=== PATIENT | female | born 2000 | race Caucasian/White ===

== ENCOUNTER 2021-02-25 21:16 | Emergency (ER) | payer OTHER, SELFPAY ==
[2021-02-25 21:18] VITALS: BP 143/75; PULSE 94; RESP 16; TEMP 36.1; O2SAT 99; BMI 26.6
--- NOTE | 2021-02-25 21:48 | EKG12_ITS ---
Test Reason : DYSRYTHMIA Blood Pressure : / mmHG Vent. Rate : 070 BPM Atrial Rate : 070 BPM P-R Int : 150 ms QRS Dur : 092 ms QT Int : 400 ms P-R-T Axes : 065 064 025 degrees QTc Int : 432 ms Normal sinus rhythm Normal ECG Confirmed by TAM MAS, SELENA ([id number]), fashion editor ТАТЬЯНА DUQUE ([id number]) on 02/27/2021 12:27:10 PM Referred By: BETTY Confirmed By:SELENA TURCIOS MD
--- NOTE | 2021-02-25 21:56 | ED.RN ---
NO OLD EKGS IN MUSE
--- NOTE | 2021-02-25 22:00 | RAD_ITS ---
STUDY: X-RAY CHEST REASON FOR EXAM: Female, 20 years old. chest pain TECHNIQUE: Single AP portable view of the chest. COMPARISON: None. FINDINGS: The lungs are clear and expanded. There is no demonstrated pleural abnormality. Normal size heart. Normal mediastinum and pascual. Normal visualized pulmonary arteries. Normal visualized aortic arch and descending thoracic aorta. Normal visualized thoracic spine. Normal visualized ribs, clavicles, and shoulders. There is no demonstrated abnormality of the visualized soft tissue structures of the upper abdomen. RAD/Chest 1 View (Portable) IMPRESSION: Normal x-ray examination of the chest. Electronically Signed: Javed Lowe DO at 22:12 EDT Tel , Service support ,
--- NOTE | 2021-02-25 23:17 | EX.ED.GENINJ ---
HPI History of Present Illness Chief Complaint: Other, Pain/Inj Informant: patient Narrative Narrative: 20-year-old female presents for left arm pain. Patient had a Nexplanon placed approximately 1 week ago. States that she had increasing pain in her left arm. Worse with movement. Rated grades across her chest. Aching in nature. Denies any shortness of breath PFSH PFSH Home Medications naproxen 500 mg PO BID #10 tab 02/25/21 [Rx Last Taken Unknown] Allergy/AdvReac Type Severity Reaction Status Date / Time No Known Allergies Allergy Verified 02/25/21 21:20 Social History Smoking Status: Never smoker ROS ROS ED Constitutional Constitutional ED: Denies chills, fever(s) or sweats Eyes Eyes: Denies blurry vision, change in vision or diplopia ENT ENT ED: Denies rhinorrhea or sore throat Cardiovascular Cardiovascular: Reports chest pain; Denies orthopnea, palpitations or racing heartbeat Respiratory/Chest Respiratory/Chest: Denies cough, dyspnea, dyspnea on exertion, orthopnea or sputum Gastrointestinal Gastrointestinal: Denies abdominal pain, constipation, diarrhea, melena, nausea or vomiting Genitourinary Genitourinary ED: Denies dysuria, hematuria or urinary frequency Musculoskeletal Musculoskeletal: Reports myalgias; Denies arthralgias or neck pain Integumentary Denies rash Neurologic Neurologic: Denies headache(s), paresthesias or weakness Psychiatric Psychiatric: Denies anxiety or depression Hematologic/Lymphatic Hematologic/Lymphatic: Denies easy bleeding or easy bruising Allergic/Immunologic Allergic/Immunologic ED: Denies mouth swelling or tongue swelling EXAM Physical Exam Const Vital Signs: 02/25/21 21:18 02/25/21 21:58 Temperature 96.9 F L Temperature Source Temporal Pulse Rate 94 Respiratory Rate 16 Respiratory Effort Normal Non-Labored Blood Pressure 143/75 H Blood Pressure Mean 97 Pulse Ox 99 Oxygen Delivery Method Room Air Positive well nourished and well developed General Appearance ED: well developed HEENT Reports moist mucous membranes normocephalic and atraumatic Eyes PERRL and EOMs intact bilaterally Neck no lymphadenopathy, supple and no JVD Chest Wall inspection of chest normal Resp normal respiratory effort and clear to auscultation bilaterally Cardio regular rate, S1 normal heart sound, S2 normal heart sound and no murmurs Peripheral Pulses: pulses 2+ throughout GI soft to palpation, non-tender and non-distended Back/Spine no CVA tenderness and no thoracic nor lumbar tenderness Extremity normal to inspection Extremity Narrative: Bruising distal to the site of insertion of the Nexplanon. No overlying cellulitis or abscess. General Extremety ED: Negative for edema General Extremity: Negative for edema Neuro Sensorium / Orientation: alert Motor Exam: strength 5/5 throughout Psych mental status grossly normal Skin no rashes or lesions noted MDM MDM MDM Narrative Medical decision making narrative: Patient appears well nontoxic. Vital signs within normal limits. EKG nonischemic. Chest x-ray interpreted by myself is negative. Radiology concurs. Ultrasound was ordered but metallurgy laboratory technician cannot perform upper ultrasounds at night only lower ultrasounds. She will be set up to receive an ultrasound tomorrow. Patient will be given intramuscular Toradol in the emergency department and Naprosyn for home. Advised to follow-up with nurse practitioner the place the Nexplanon. Patient agreeable and discharged home in stable condition. Radiography Diagnostic Testing: Radiology Impression Chest X-Ray 02/25/21 22:00 IMPRESSION: Normal x-ray examination of the chest. Electronically Signed: Javed Lowe DO at 22:12 EDT Tel , Service support , Rhythm Strip Rhythm Strip: Sinus Rhythm Rate: 70 Ectopy: None EKG Initial EKG: Attestation: I personally reviewed and interpreted this EKG as follows: Interpretation: Sinus Rhythm and No Acute Injury Pattern Comments: Normal sinus rhythm at 70 bpm. AK interval 150 ms. QTC of 432 ms. No evidence of acute ischemia. Discharge Plan Triage Chief Complaint: Other, Pain/Inj ED Provider: Jerod Ramirez Dx/Rx/DC Orders Clinical Impression: Arm pain, left, Chest pain Instructions: ED Myalgias, ED Chest Pain [facility]O Prescriptions: New naproxen 500 mg tablet 500 mg PO BID Qty: 10 RF: 0 Primary Care Provider: Iftikhar Fitzgerald Referrals: Iftikhar Fitzgerald MD [Primary Care Provider] - 2 Days Disposition Disposition: Home, Self Care
[2021-02-25] MEDS: Ketorolac 15 MG/ML Vial IM (23:35)
== END 2021-02-25 23:39 | disposition home or self-care (01) ==
PROVIDERS: Emergency Provider Emergency Medicine; PCP Family Medicine
DX: M79.602 Pain in left arm (principal); R07.9 Chest pain, unspecified
CPT/HCPCS: 71045; 93005; 96372; 99282

== ENCOUNTER → 2021-02-26 10:55 | Outpatient (CLI) | payer OTHER, SELFPAY ==
[2021-02-25 21:18] VITALS: BMI 26.6
--- NOTE | 2021-02-26 10:58 | VDUE_ITS ---
Reason For Study: Left arm pain Left Proximal Left jugular vein is spontaneous, widely patent, phasic, with no intraluminal echogenicity noted. Left subclavian vein is spontaneous, widely patent, phasic, with no intraluminal echogenicity noted. Left Arm Left axillary vein is spontaneous, patent, phasic, competent, compressible and demonstrates augmentation. Area of concern: control: Nexplanon noted in the distal upper arm. No vascular flow noted. Left brachial vein is compressible. Left cephalic vein is compressible. Left basilic vein is compressible. Left Lower Arm Left radial vein is compressible. Left ulnar vein is compressible. Patient Safety Pt seen in ED 02/25/2021. Done as next day ED scan. Prelim to PCP: Amilcar and EDGARDO: [facility]. VL/Venous Duplex US, Unilateral Interpretation Summary No evidence for acute deep venous thrombosis[left] upper extremity with patent and compressible cephalic and basilic veins. Report of control device implanted in the lef t upper arm images noted. Ordering Physician: Jerod Ramirez Referring Physician: MD Iftikhar Lainez Performed By: Gemini Dumont RVT ?
== END ==
PROVIDERS: PCP Family Medicine; Referring Provider Emergency Medicine; Visit Provider Emergency Medicine
DX: M79.602 Pain in left arm (principal)
CPT/HCPCS: 93971

== ENCOUNTER → 2023-03-11 | Outpatient (CLI) | payer OTHER, SELFPAY ==
--- NOTE | 2023-03-11 15:20 | RAD_ITS ---
EXAM: XR CERVICAL SPINE, 4 OR 5 VIEWS CLINICAL INDICATION: ACUTE NECK PAIN TECHNIQUE: Frontal, lateral and bilateral oblique views of the cervical spine. COMPARISON: No relevant prior studies available. FINDINGS: VERTEBRAE: Unremarkable. Preserved vertebral body height. No acute fracture. No spondylolisthesis. Preservation of the normal cervical lordosis. No significant facet arthropathy. DISC SPACES: Unremarkable. Disc spaces are maintained. SOFT TISSUES: Unremarkable. No prevertebral soft tissue widening. LUNG APICES: Clear. RAD/Cerv Spine 4 or 5 Views IMPRESSION: No evidence of acute fracture or spondylolisthesis. Electronically Signed: Jam Rod MD at 23:07 EDT ,
== END | disposition home or self-care (01) ==
PROVIDERS: PCP Family Medicine; Referring Provider Physician Assistant; Visit Provider Physician Assistant
DX: M54.2 Cervicalgia (principal)
CPT/HCPCS: 72050

== ENCOUNTER 2023-04-10 14:24 | Emergency (ER) | payer OTHER, SELFPAY ==
[2023-04-10 14:25] VITALS: PULSE 76; RESP 14; TEMP 36.4; O2SAT 100; BMI 22.8
--- NOTE | 2023-04-10 14:38 | CT_ITS ---
EXAM: CT ABDOMEN AND PELVIS WITHOUT INTRAVENOUS CONTRAST CLINICAL INDICATION: Pain TECHNIQUE: Helically acquired images were obtained of the abdomen and pelvis without intravenous contrast. This CT exam was performed using one or more of the following dose reduction techniques: automated exposure control, adjustment of the mA and/or kV according to patient size, and/or use of iterative reconstruction technique. RADIATION DOSE: CTDIvol = 6.11 mGy, DLP = 294.55 mGy-cm COMPARISON: No relevant prior studies available. FINDINGS: LOWER THORAX: Unremarkable. Lung bases are clear. No cardiomegaly. No significant pericardial effusion. ABDOMEN: LIVER: Unremarkable. Homogeneous. GALLBLADDER AND BILE DUCTS: Unremarkable. No calcified gallstones. No gallbladder distention or wall edema. No intra- or extrahepatic biliary ductal dilation. PANCREAS: Unremarkable. No focal cystic mass. SPLEEN: Unremarkable. Normal size without focal cystic or solid mass. ADRENALS: Unremarkable. No nodules. KIDNEYS AND URETERS: Unremarkable. Normal renal size and position. No hydronephrosis. STOMACH AND BOWEL: There is an umbilical hernia containing fat. There is no bowel involvement. There is no incarceration. There is no findings suggesting that this is causing a bowel obstruction. No focal inflammatory change. PELVIS: APPENDIX: Appendectomy changes. BLADDER: Urinary bladder wall has wall thickening. This can be related to a partially contractile state. However, a cystitis is not excluded. Urinalysis should be performed in an effort to exclude cystitis. Unremarkable urinary bladder. REPRODUCTIVE: Unremarkable as visualized. No mass. ABDOMEN and PELVIS: INTRAPERITONEAL SPACE: Unremarkable. No ascites or other fluid collection. No free air. BONES/JOINTS: There are bilateral pars articularis defects at L5-S1. There is a Grade 1 anterolisthesis of L5 on S1. No suspicious lytic or blastic abnormality. SOFT TISSUES: See above. VASCULATURE: Unremarkable. Abdominal aorta is non-dilated. LYMPH NODES: Unremarkable. No enlarged lymph nodes. TUBES, LINES AND DEVICES: Intrauterine device in place. OTHER FINDINGS: Question left paracentral disc herniation at L4-5. MRI can better evaluate. CT/Abdomen/Pelvis without Cont IMPRESSION: 1. Urinary bladder wall has wall thickening. This can be related to a partially contractile state. However, a cystitis is not excluded. Urinalysis should be performed in an effort to exclude cystitis. 2. There are bilateral pars articularis defects at L5-S1. There is a Grade 1 anterolisthesis of L5 on S1. 3. Question left paracentral disc herniation at L4-5. MRI can better evaluate. Electronically Signed: Yohan Greenwood MD at 16:07 EDT ,
--- NOTE | 2023-04-10 14:39 | ED.VIS.GI ---
HPI HPI - GI History of Present Illness Chief Complaint: Abd Pain Detail of Chief Complaint: Abdominal pain Informant: patient Narrative Narrative: Patient presents with abdominal pain as her 2 days ago. Patient states the pain waxes and wanes in intensity. At times the pain severe and she did have 1 episode of vomiting with it. Patient describes urinary frequency. She denies dysuria or hematuria. Patient went to urgent care today where they checked her urine and they thought it looked okay and was referred to the emergency department. No history of diverticulitis. She denies blood in her stool or black tarry stools. Patient does not have regular periods as she does have Mirena. She did have small amount of spotting 2 weeks ago. No history of ovarian cysts. PFSH PFSH Home Medications NK 04/10/23 [History Last Taken Unknown] Allergy/AdvReac Type Severity Reaction Status Date / Time No Known Allergies Allergy Verified 04/10/23 14:25 Family History (Updated 04/10/23 @ 14:53 by Lena Duke) Father Kidney stones Skin cancer Surgical History (Updated 04/10/23 @ 14:53 by Lena Duke) Hx of appendectomy Social History (Updated 04/10/23 @ 14:54 by Lena Duke) household members: spouse housing: house Smoking Status: Never smoker ROS ROS ED Review of Systems ROS Unobtainable: other Constitutional Constitutional ED: Reports lethargy; Denies chills, fever(s), sweats or weight loss Eyes Eyes: Denies blurry vision, change in vision or diplopia ENT ENT ED: Denies rhinorrhea or sore throat Cardiovascular Cardiovascular: Denies chest pain, orthopnea or racing heartbeat Respiratory/Chest Respiratory/Chest: Denies cough, dyspnea, dyspnea on exertion, orthopnea or sputum Gastrointestinal Gastrointestinal: Reports abdominal pain, nausea and vomiting; Denies diarrhea Genitourinary Genitourinary ED: Reports urinary frequency; Denies dysuria or hematuria Musculoskeletal Musculoskeletal: Denies arthralgias, back pain, myalgias or neck pain Integumentary Denies abscess, Abrasions or rash Neurologic Neurologic: Denies headache(s) or weakness Psychiatric Psychiatric: Denies anxiety, depression or suicidal thoughts Endocrine Endocrinology: Denies polydipsia, polyphagia or polyuria Hematologic/Lymphatic Hematologic/Lymphatic: Denies easy bleeding, easy bruising or lymphadenopathy Allergic/Immunologic Allergic/Immunologic ED: Denies mouth swelling, tongue swelling or urticaria EXAM Physical Exam Const Vital Signs: 04/10/23 14:25 04/10/23 16:35 04/10/23 16:35 Temperature 97.6 F L Temperature Source Temporal Pulse Rate 76 Respiratory Rate 14 16 16 Pulse Ox 100 Oxygen Delivery Method Room Air Positive well nourished and well developed General Appearance ED: well developed and NAD HEENT Reports TM's clear and moist mucous membranes normocephalic and atraumatic; Negative for trauma or tenderness Tympanic Membrane ED: Yes TM's clear Eyes PERRL and EOMs intact bilaterally General Eye ED: Negative for pale conjunctiva or scleral icterus Neck no lymphadenopathy, supple and no JVD General: Negative for tenderness Chest Wall inspection of chest normal and palpation of chest normal Chest: Negative for tenderness Resp normal respiratory effort and clear to auscultation bilaterally Effort and Inspection: Negative for respiratory distress or pain with movement Auscultation: Negative for rhonchi, wheezes or diminished lung sounds Cardio regular rate, regular rhythm, S1 normal heart sound, S2 normal heart sound and no murmurs Peripheral Pulses: pulses 2+ throughout GI normal to inspection, nondistended, normoactive bowel sounds, soft to palpation, non-distended and no masses GI Narrative: Tenderness palpation over left lower quadrant with some guarding. There is no rebound, rigidity, or peritoneal signs. No mass palpated. Back/Spine no CVA tenderness and no thoracic nor lumbar tenderness Extremity normal to inspection General Extremety ED: Negative for edema General Extremity: Negative for edema Neuro oriented x3, CN's II-XII intact bilaterally, no sensory deficits noted and gait normal Sensorium / Orientation: awake, alert, oriented to person, oriented to place and oriented to time Motor Exam: strength 5/5 throughout and strength abnormal Psych mental status grossly normal Skin no rashes or lesions noted and no wounds MDM MDM MDM Narrative Medical decision making narrative: Patient presents with left lower quadrant pain urinary frequency. In the differential would be kidney stone versus UTI versus diverticulitis or ovarian cyst. Will obtain basic labs as well as a CT scan of the abdomen pelvis to evaluate further. We will obtain a urinalysis. Patient had a CBC with differential that showed a normal WBC count of 6.1 with hemoglobin 12.5 and platelet count of 220. Chemistries unremarkable. Urinalysis was negative for infection. hCG was negative. CT scan of the abdomen pelvis without contrast showed a small fat-containing umbilical hernia. There is no evidence of kidney stone. She had a possible disc herniation at L4-5 and recommended MRI for further evaluation if indicated. Patient really has not been having any back pain or pain radiating down her leg. At this point etiology of her pain unclear. She was advised to follow-up with her primary care physician within next 3 to 5 days. Patient states that she normally has 1 bowel movement every week and that is her normal. Lab Data Labs: Laboratory Results - last 24 hr 04/10/23 04/10/23 14:57 15:40 WBC 6.1 RBC 3.81 L Hgb 12.5 Hct 36.4 L MCV 95.5 MCH 32.8 H MCHC 34.3 RDW Std Deviation 45.3 H RDW Coeff of Rodríguez 12.8 Plt Count 220 MPV 9.0 Immature Gran % (Auto) 0.200 Neut % (Auto) 54.4 Lymph % (Auto) 33.7 [place] % (Auto) 8.4 Eos % (Auto) 2.5 Baso % (Auto) 0.8 Absolute Neuts (auto) 3.3 Absolute Lymphs (auto) 2.05 Nucleated RBC % 0 Sodium 141 Potassium 3.6 Chloride 108 H Carbon Dioxide 28.0 Anion Gap 5 BUN 9 Creatinine 0.81 Estim Creat Clear Calc 98.03 Est GFR (MDRD) Af Amer 113 Est GFR (MDRD) Non-Af 93 BUN/Creatinine Ratio 11.1 Glucose 107 H Calcium 8.7 Serum , Qual NEGATIVE Urine Color Yellow Urine Clarity Clear Urine pH 8.0 Ur Specific [place] 1.015 Urine Protein 15 H Urine Glucose (UA) Normal Urine Ketones Negative Urine Occult Blood Negative Urine Nitrite Negative Urine Bilirubin Negative Urine Urobilinogen Normal Ur Leukocyte Esterase Negative Urine RBC 0 SEEN Urine WBC 0 SEEN Ur Squamous Epith Cells 0-5 SEEN Urine Bacteria 0 SEEN Urine Mucus 0 SEEN Radiography Diagnostic Testing: Clinical Impression(s) from Imaging Studies Abdomen/Pelvis CT 04/10/23 14:38 IMPRESSION: 1. Urinary bladder wall has wall thickening. This can be related to a partially contractile state. However, a cystitis is not excluded. Urinalysis should be performed in an effort to exclude cystitis. 2. There are bilateral pars articularis defects at L5-S1. There is a Grade 1 anterolisthesis of L5 on S1. 3. Question left paracentral disc herniation at L4-5. MRI can better evaluate. Electronically Signed: Yohan Greenwood MD at 16:07 EDT , Discharge Plan Triage Chief Complaint: Abd Pain ED Provider: Henry Burger Dx/Rx/DC Orders Clinical Impression: Abdominal pain Instructions: ED Abdominal Pain Unkn Cause Fem Prescriptions: No Action NK Primary Care Provider: Ashlee Baltazar Referrals: Iftikhar Fitzgerald MD [Non-Staff] - 3-5 Days Disposition Disposition: Home, Self Care Discharge Date/Time: 04/10/23 16:35
[2023-04-10] MEDS: 0.9% Normal Saline 1,000 ML 125 ML IV (14:56)
[2023-04-10 15:07] LABS: Absolute Lymphocyte Count 2.05 X10^3/uL (0.83-4.51); Absolute Neutrophil Count 3.3 X10^3/uL (2.0-7.7); Basophil# 0.05 X10^3/uL; Basophil% 0.8 % (0-1); Eosinophil# 0.15 X10^3/uL; Eosinophils% 2.5 % (0-5); Hematocrit 36.4 % (37-47); Hemoglobin 12.5 g/dL (12.0-15.0); Lymphocyte # 2.05 X10^3/ul (0.83-4.51); Lymphocyte % 33.7 % (19-41); Mean Corp Hgb Conc 34.3 g/dL (32-36); Mean Corpuscular Hgb 32.8 pg (27.0-32.0); Mean Corpuscular Volume 95.5 fL (81-99); Monocyte# 0.51 X10^3/uL; Monocyte% 8.4 % (0-10); NRBC Flagged by Analyzer 0 % (0-5); Neutrophil # 3.31 X10^3/uL (2.7-7.7); Neutrophil % 54.4 % (47-70); Platelet Count 220 K/mm3 (150-450); RBC Distribution Width CV 12.8 % (11.6-14.6); RBC Distribution Width SD 45.3 fl (35.1-43.9); Red Blood Count 3.81 M/mm3 (4.2-5.4); White Blood Count 6.1 K/mm3 (4.4-11.0)
[2023-04-10 15:17] LABS: Anion Gap 5 (5-15); BUN 9 mg/dL (7-18); BUN/Creat Ratio 11.1 RATIO (10-20); Calcium,Total 8.7 mg/dL (8.5-10.1); Chloride 108 mmol/L (98-107); Creatinine, Serum 0.81 mg/dL (0.55-1.02); EST Glomerular Filtration Rate 93 mL/min (>60); Est Glom Filt Rate - Afr Amer 113 mL/min (>60); Estimated Creatinine Clearance 98.03 ml/min; Glucose 107 mg/dL (74-106); Potassium 3.6 mmol/L (3.5-5.1); Sodium Level 141 mmol/L (136-145)
[2023-04-10 15:34] LABS: Internal QC Validated? YES +Cl - CLEAR BKGD; Pregnancy, Serum, hCG Quali. NEGATIVE Negative
[2023-04-10 15:50] LABS: Bacteria 0 SEEN /hpf (None Seen); Mucous, Urine 0 SEEN /hpf (<or=2+); Red Blood Cells-Urine 0 SEEN /hpf (0-5); White Blood Cells 0 SEEN /hpf (0-5)
[2023-04-10 15:53] LABS: Color, Urine Yellow (Yellow); Glucose, Dipstick Normal (Normal); Ketone-Dipstick Negative (Negative); Leukocyte Esterase-Dipstick Negative /ul (Negative); Nitrite-Dipstick Negative (Negative); Occult Blood-Urine Negative /ul (Negative); Protein-Dipstick 15 mg/dl (Negative); Specific Gravity, Urine 1.015 (1.002-1.030); Urine Bilirubin Dipstick Negative (Negative); Urine Clarity Clear (Clear); Urine Urobilinogen Normal (Normal)
[2023-04-10 15:59] LABS: Squamous Epithelial Cells - UA 0-5 SEEN /hpf (5-10)
[2023-04-10 16:35] VITALS: RESP 16
== END 2023-04-10 16:35 | disposition home or self-care (01) ==
PROVIDERS: Emergency Provider Emergency Medicine; PCP Physician Assistant; Visit Provider Emergency Medicine
DX: R10.32 Left lower quadrant pain (principal)
CPT/HCPCS: 74176; 80048; 81001; 84703; 85025; 96360; 96361; 99283; J7030; A4216

== ENCOUNTER → 2023-10-08 | Outpatient (CLI) | payer OTHER, SELFPAY ==
--- NOTE | 2023-10-08 08:27 | RAD_ITS ---
STUDY: X-RAY - THORACIC SPINE REASON FOR EXAM: Female, 23 years old. Back pain TECHNIQUE: 4 view(s) of the thoracic spine were obtained. COMPARISON: None. FINDINGS: Normal kyphosis of the thoracic spine. There is no substantial scoliosis. Normal thoracic vertebrae and endplates. Normal disc space heights. The soft tissue structures are unremarkable. RAD/Thoracic Spine Min 4 Views IMPRESSION: Normal x-ray examination of the thoracic spine. Electronically Signed: Salo Granado MD at 9:04 EST ,
--- NOTE | 2023-10-08 08:30 | RAD_ITS ---
STUDY: X-RAY - LUMBAR SPINE REASON FOR EXAM: Female, 23 years old. Back pain TECHNIQUE: 5 view(s) of the lumbar spine were obtained. COMPARISON: None FINDINGS: There is an exaggerated lumbar lordosis. There is no substantial scoliosis. There is a grade 1 anterior listhesis of L5 on S1 due to spondylolysis of the pars interarticularis of the L5 vertebrae. Normal vertebral bodies and endplates. Normal disc space heights. IUD is seen within the pelvis. RAD/L/S Spine Min 4 Views IMPRESSION: Grade 1 anterior listhesis of L5 on S1 due to spondylolysis of the pars interarticularis of the L5 vertebrae. Electronically Signed: Salo Granado MD at 9:03 EST ,
== END | disposition home or self-care (01) ==
LOC: RAD 08:27
PROVIDERS: PCP Nurse Practitioner Family; Referring Provider Physician Assistant Surgical; Visit Provider Physician Assistant Surgical
DX: M51.26 Other intervertebral disc displacement, lumbar region (principal)
CPT/HCPCS: 72074; 72110

== ENCOUNTER 2023-10-13 10:30 | Emergency (ER) | payer OTHER, SELFPAY ==
[2023-10-13 10:31] VITALS: BP 132/78; PULSE 64; RESP 16; TEMP 36.4; O2SAT 98; BMI 21.7
[2023-10-13] MEDS: Ketorolac 15 MG/ML Vial IV (11:08)
[2023-10-13] MEDS: Ondansetron 4 MG/2 ML Vial IV (11:09)
[2023-10-13] MEDS: Morphine 4 MG/ML Syringe IV (11:09)
--- NOTE | 2023-10-13 11:12 | EDS_ITS ---
HPI History of Present Illness Chief Complaint: Back Detail of Chief Complaint: Low back pain with sciatica left side Informant: patient Onset/Context/Timing Onset: Today and Days (Was seen on Wednesday at urgent care for back pain that was central. Had x-ray of the thoracic and lumbar spine. Patient had grade 1 spondylolisthesis noted on the lumbar x-ray.) Context: Sudden Onset Chronic pain exacerbated by: Bending over in the shower felt a pop and pain radiating down her left leg Injury: bending Timing: Continuous Quality: Dull and Aching Location: Lumbar, Buttock and Left Leg Maximum Severity: Severe Worsened by: improves with Movement, Ambulation and Bending Relieved by: Nothing Associated Symptoms Associated Symptoms: Radiation to Left Leg and - (No saddle paresthesia or ane sthesia. No foot drop. She did not go up and down steps today. Yesterday she had no buckling of her knees.); Negative for Numbness, Tingling, Radiation to Right Leg, Fever, Abdominal Pain, Dysuria, Unable to Ambulate, Unable to Transfer, Urinary Retention, Urinary Incontinence, Constipation or Fecal Incontinence Narrative Narrative: Patient is a 23-year-old with prior history of L4-5 herniated disc on the left that was treated conservatively. She was seen on Wednesday for central back pain and had images at that time that revealed a grade 1 spondylolisthesis L5-S1. Patient presents today because of pain radiating down her posterior left leg after bending over. She denies bowel bladder dysfunction. She denies saddle paresthesia or anesthesia. Denies foot drop. She denies fever or chills. She denies any recent surgical procedure. Prior similar symptoms: Yes Recent Illness/Hospitalization: Yes [facility] Medical History Back pain Herniation of left side of L4-L5 intervertebral disc Home Medications tizanidine 4 mg capsule (Zanaflex) 4 mg PO Q8H PRN muscle spasticity 10 days #30 caps 10/08/23 [Rx Last Taken Unknown] hydrocodone-acetaminophen 5-325mg 5mg-325mg 1 tab PO Q6H PRN PRN Pain 3 days #10 TABLETS 10/13/23 [Rx Last Taken Unknown] naproxen 500 mg tablet 500 mg PO BID #14 tabs 02/07/24 [Rx Last Taken Unknown] Allergy/AdvReac Type Severity Reaction Status Date / Time No Known Allergies Allergy Verified 10/13/23 10:31 Family History Father Kidney stones Skin cancer Surgical History Hx of appendectomy Social History household members: spouse housing: house Smoking Status: Never smoker ROS ROS ED Constitutional Constitutional ED: Denies chills, fever(s), subjective or sweats Eyes Eyes: Denies blurry vision, change in vision or diplopia Cardiovascular Cardiovascular: Denies chest pain Respiratory/Chest Respiratory/Chest: Denies dyspnea or dyspnea on exertion Gastrointestinal Gastrointestinal: Denies constipation, diarrhea, nausea or vomiting Musculoskeletal Musculoskeletal: Reports back pain; Denies arthralgias, myalgias or neck pain Integumentary Denies rash Neurologic Neurologic: Denies paresthesias or weakness Hematologic/Lymphatic Hematologic/Lymphatic: Denies easy bleeding or easy bruising EXAM Physical Exam Const Vital Signs: 10/13/23 10:31 Temperature 97.6 F L Temperature Source Temporal Pulse Rate 64 Respiratory Rate 16 Blood Pressure 132/78 H Blood Pressure Mean 96 Pulse Ox 98 Oxygen Delivery Method Room Air Positive well nourished and well developed Constitutional Narrative: Patient appears uncomfortable. She grimaced when she ricardo from sitting to standing position. General Appearance ED: well developed; Negative for pallor HEENT HEENT Narrative: Head is atraumatic and normocephalic. Ears are normal. Nares patent. Eyes PERRL and EOMs intact bilaterally General Eye ED: Negative for pale conjunctiva or scleral icterus Neck no lymphadenopathy, supple and no JVD Resp normal respiratory effort Cardio regular rate and regular rhythm GI normal to inspection, nondistended, normoactive bowel sounds, soft to palpation, non-tender, non-distended and no masses Back/Spine normal to inspection; Negative for no thoracic nor lumbar tenderness Back/Spine Narrative: EHLs intact. Gait observed with no foot drop. Patient does have a slight limp. She is able to walk on her heels and toes. She is able to perform a 1 legged squat right and left. Patella and ankle reflex are 3+ and symmetric. Sensation over L3-S1 dermatome normal. DP pulses 2+. Cervical Spine: Negative for cervical spine tenderness Thoracic Spine / Upper Back: Negative for paraspinal muscle tenderness Lumbar Spine / Lower Back: ROM limited and straight leg raise positive - left at 40 degrees Neuro oriented x3 and no sensory deficits noted Sensorium / Orientation: alert Motor Exam: strength 5/5 throughout Deep Tendon Reflexes: Rt Patellar (L4): 3+, Lt Patellar (L4): 3+, Rt Ankle (S1): 3+ and Lt Ankle (S1): 3+ Deep Tendon Reflexes Back: Rt Patellar (L4): 3+, Lt Patellar (L4): 3+, Rt Ankle (S1): 3+ and Lt Ankle (S1): 3+ Plantar Reflex: Downgoing: bilateral (There is no clonus.) Psych mental status grossly normal Skin no rashes or lesions noted and no wounds General Skin Exam: Negative for jaundice or pallor MDM MDM MDM Narrative Medical decision making narrative: Patient's history and physical exam is consistent with sciatica which may be due to the L4-5 herniated disc. Presently she has no neurologic findings i.e. deficit. Treatment is conservative. IV was established. She was treated with morphine, ketorolac for her pain and Zofran to prevent nausea and vomiting from the morphine. Will reassess. Patient's images were reviewed. Patient was given a copy of the image and explained what the finding was and that this is in all likelihood congenital. At this point patient does not meet criteria for emergent MRI. Treatment and Re-Evaluation Narrative: Patient was reassessed at 1209. Pain has improved significantly. Patient was informed she has sciatica. Treatment is conservative. She was informed that she does not meet criteria for MRI. Discharge Plan Triage Chief Complaint: Back ED Provider: Mo Gandara Dx/Rx/DC Orders Clinical Impression: Acute low back pain with sciatica Instructions: ED Sciatica Prescriptions: New hydrocodone-acetaminophen [hydrocodone-acetaminophen] 5-325 mg tablet 1 tab PO Q6H PRN PRN (Reason: Pain) 3 Days Qty: 10 0RF naproxen 500 mg tablet 500 mg PO BID Qty: 14 0RF No Action tizanidine [Zanaflex] 4 mg capsule 4 mg PO Q8H PRN (Reason: muscle spasticity) 10 Days Qty: 30 0RF Primary Care Provider: Joyce Marshall Referrals: Joyce Marshall, [facility] [Primary Care Provider] - 3-5 Days Activity Restrictions/Additional Instructions: 1. Avoid activity that causes you significant pain 2. Return immediately if you develop a foot drop or difficulty walking 3. Take medication as prescribed Disposition Disposition: Home, Self Care
[2023-10-13 12:31] VITALS: BP 134/78; PULSE 64; RESP 16; TEMP 36.4; O2SAT 99
--- OUTSIDE RECORDS SUMMARY | 2023-10-13 14:04 | XMS RPT_ITS | CCD ---
Author Name Unknown Address [address] [place] [address] Organization [facility] Care Team Providers Care Business Applications Analyst Name Role Phone BHUPINDER BROWN Attending Unavailable VACCARIELLOTAYLOR Consulting Unavailable KEVIN, BHUPINDER Neves Admitting Unavailable BHUPINDER BROWN Primary Care Unavailable PROVIDER, UNKNOWN Consulting Unavailable PROVIDER, UNKNOWN Consulting Unavailable PROVIDER, UNKNOWN Consulting Unavailable Problems Problem Classification Problem Date Documented Da te Episodic/Chronic Immunizations and screening for infectious disease (3 sources) Contact with and (suspected) exposure to other viral communicable diseases; Translations: [Contact with and (suspected) exposure to other viral communicable diseases] Onset: 09-03-2020 Episodic Results Test Name Value Interpretation Reference Range Facil ity Encounters Encounter Date Encounter Type Care Provider Facility Start: 09-03-2020 End: 09-03-2020 Patient encounter procedure BHUPINDER BROWN [facility] Payers Date Payer Category Payer Unknown [id number] Unknown [id number] Summary Purpose Family History No Family History Records FoundNo Family History Records FoundNo Family History Records Found Advance Directives No Advanced Directives Records FoundNo Advanced Directives Records FoundNo Advanced Directives Records Found Additional Source Comments INFORMATION SOURCE (unrecogn ized section and content) DATE CREATED AUTHOR AUTHOR'S ORGANIZ ATION 09/14/2020 [facility] DATE CREATED AUTHOR AUTHOR'S ORGANIZ ATION 08/10/2021 [facility] FOR RECORDS PERTAINING TO PATIENTS WHO ARE OR HAVE BEEN ENROLLED IN A CHEMICAL DEPENDENCY/SUBSTANCEABUSE PROGRAM, SOME INFORMATION MAY BE OMITTED. This clinical summary was aggregated from multiple sources. Caution should be exercised in using it in the provision of clinical care. This summary normalizes information from multiple sources, and as a consequence, information in this document may materially change the coding, format and clinical context of patient data. In addition, data may be omitted in some cases. CLINICAL DECISIONS SHOULD BE BASED ON THE PRIMARY CLINICAL RECORDS. [facility] [employer] [facility]. provides no warranty or guarantee of the accuracy or completeness of information in this document.
== END 2023-10-13 12:35 | disposition home or self-care (01) ==
PROVIDERS: Emergency Provider Emergency Medicine; PCP Nurse Practitioner Family; Visit Provider Emergency Medicine
DX: M54.42 Lumbago with sciatica, left side (principal)
CPT/HCPCS: 96374; 96375; 99283; A4216; J2405

== ENCOUNTER → 2025-01-17 | Outpatient (CLI) | payer OTHER, SELFPAY ==
[2025-01-22 22:51] LABS: HPV Reflexed? NOT INDICATED
== END | disposition home or self-care (01) ==
LOC: LABSPEC 15:36
PROVIDERS: PCP Nurse Practitioner Family; Referring Provider Nurse Practitioner Family; Visit Provider Nurse Practitioner Family
DX: Z12.4 Encounter for screening for malignant neoplasm of cervix (principal)
CPT/HCPCS: 88175; G0145

== ENCOUNTER → 2025-01-24 | Outpatient (CLI) | payer OTHER, SELFPAY ==
--- NOTE | 2025-01-24 12:31 | US_ITS ---
PROCEDURE: PELVIC W/ TRANSVAGINAL REASON FOR EXAM: IRREGULAR PERIODS TECHNIQUE: Transabdominal and transvaginal pelvic ultrasound COMPARISON: None FINDINGS: Measurements: Uterus: 7.2 cm x 5.5 cm x 3.9 cm with a volume of 80.06 mL Endometrial Thickness: 3 mm Right Ovary: 3.3 cm x 2.9 cm x 2.9 cm with a volume of 14.64 mL. Left Ovary: 3.3 cm x 2.9 cm x 2.9 cm with a volume of 10.64 mL. TRANSABDOMINAL: Uterus: Normal size, myometrial echotexture, and contour. Endometrium: 3 mm in the hyperechoic. An IUD is seen within the fundal portion of the endometrium. Right ovary: Multiple follicles are seen within the ovary. Left ovary: Multiple follicles are seen within the ovary. Other: No large pelvic mass identified. Transvaginal sonography was performed to better visualize the endometrium. TRANSVAGINAL: Uterus: Retroverted. Endometrium: Unremarkable. IUD is seen within the fundal portion of the endometrium. Right ovary: Follicles are seen within it. Left ovary: Follicle is seen within it. Other adnexal findings: None. Cul-de-sac: No free intraperitoneal fluid identified. Tenderness: No tenderness US/Pelvic w/ Transvaginal IMPRESSION: Follicles are seen in both ovaries. IUD is seen within the fundal portion of the endometrium. Reading Location: [place] [id number]
== END | disposition home or self-care (01) ==
LOC: OPUS 12:29
PROVIDERS: PCP Nurse Practitioner Family; Referring Provider Nurse Practitioner Family; Visit Provider Nurse Practitioner Family
DX: N92.6 Irregular menstruation, unspecified (principal)
CPT/HCPCS: 76830; 76856